=== PATIENT | male | born 1995 | race African-American/Black ===

== ENCOUNTER 2018-09-26 12:22 | Emergency (ER) | payer MEDICAID ==
[~2018-09-26] VITALS: Ht 185.4 cm; Wt 85.0 kg
[2018-09-26] MEDS ORDERED: BACITRACIN ZINC OINT UDPKT TOP ONE (14:30)
[2018-09-26] MEDS ORDERED: IBUPROFEN 600MG TABLET PO ONE (14:30)
[2018-09-26] MEDS ORDERED: LIDOCAINE HCL 1% 20ML VIAL (Pyxis) INJ INFIL ONE (14:30)
[2018-09-26] MEDS ORDERED: HYDROCODONE/ACETAMINOPHEN 5/325MG TABLET PO ONE (16:15)
[2018-09-26 17:11] VITALS: BP 126/50
== END 2018-09-26 17:12 | disposition home or self-care (01) ==
LOC: ER 12:22
DX: S61.216A Laceration without foreign body of right little finger without damage to nail, initial encounter (principal); W26.0XXA Contact with knife, initial encounter; Y93.G3 Activity, cooking and baking; Y92.090 Kitchen in other non-institutional residence as the place of occurrence of the external cause
CPT/HCPCS: 12001; 73140; 99284; J3490

== ENCOUNTER 2022-01-02 11:08 | Emergency (ER) | payer MEDICAID ==
[~2022-01-02] VITALS: Ht 188 cm; Wt 88.0 kg
[2022-01-02 11:12] VITALS: BP 162/80
[2022-01-02] MEDS ORDERED: CLOT15CR27 TP (11:20)
== END 2022-01-02 11:42 | disposition home or self-care (01) ==
LOC: ER 11:15
DX: B35.3 Tinea pedis (principal)
CPT/HCPCS: 99282